=== PATIENT | female | born 1960 | race Caucasian/White ===

== ENCOUNTER 2017-03-11 14:02 | Inpatient (IN) | payer OTHER ==
[2017-03-11] MEDS ORDERED: IV VANCOMYCIN PER PHARMACY 1 EACH MISC MISCELLANE PRN (14:15)
[2017-03-11] MEDS ORDERED: MORPHINE SULFATE 4 MG/ML SYRINGE IVP STA (14:15)
[2017-03-11] MEDS ORDERED: MORPHINE SULFATE 4 MG/ML SYRINGE IVP PRN (14:15)
[2017-03-11] MEDS ORDERED: ONDANSETRON 4 MG/2 ML VIAL IVP PRN (14:18)
[2017-03-11] MEDS ORDERED: NALOXONE 0.4 MG/ML 1 ML VIAL IV PRN (14:18)
[2017-03-11] MEDS ORDERED: VANCOMYCIN 1,500 MG in SODIUM CHLORIDE 0.9% 250 ML IVPB STA (14:20)
--- NOTE | 2017-03-11 14:40 | ED ---
General Adult HPI - General Chief complaint: Skin/Abscess/Foreign Body Stated complaint: Facial Cellulitis Time Seen by Provider: 03/11/17 14:06 Source: patient, EMS, RN notes reviewed, old records reviewed Mode of arrival: EMS Limitations: no limitations - History of Present Illness Initial comments: 56-year-old female transferred from [facility] for facial cellulitis. Patient complains of a three-day history of worsening pain and swelling of the right side of her face. She was gardening and had a bug bite on her right cheek. Yesterday night she developed a fever of 101. Pain is 8 out of 10. She does report worsening pain with movement. She has no history of MRSA infection. No history of diabetes no history recent steroid use. Patient's past medical history of seizure disorder, hypertension, and is a daily tobacco user. Denies nausea vomiting diarrhea. No chest pain or shortness of breath. Denies IV drug abuse. - Related Data Allergies Allergy/AdvReac Type Severity Reaction Status Date / Time hydromorphone [From Dilaudid] AdvReac Unknown Verified 03/11/17 14:19 Review of Systems ROS Statement: Those systems with pertinent positive or pertinent negative responses have been documented in the HPI. ROS Other: All systems not noted in ROS Statement are negative. Constitutional: Reports: fever, chills Past Medical History Past Medical History: Fibromyalgia, Hypertension, Seizure Disorder Additional Past Medical History / Comment(s): colitis History of Any Multi-Drug Resistant Organisms: None Reported Past Surgical History: Breast Surgery, Hysterectomy, Orthopedic Surgery, Tubal Ligation Past Psychological History: No Psychological Hx Reported Smoking Status: Current every day smoker Past Alcohol Use History: None Reported Past Drug Use History: Marijuana General Exam Limitations: no limitations General appearance: alert, in no apparent distress Head exam: Present: atraumatic, normocephalic Eye exam: Present: normal appearance, PERRL, periorbital swelling (Some soft tissue swelling below the right eye.) ENT exam: Present: normal exam, mucous membranes moist, other (Normal dentition , significant swelling, erythema, and tenderness to palpation of the right face extending from just below the right eye to the mid neck. There is no fluctuance. There is some induration.) Neck exam: Present: lymphadenopathy Respiratory exam: Present: normal lung sounds bilaterally. Absent: respiratory distress Cardiovascular Exam: Present: regular rate, normal rhythm GI/Abdominal exam: Present: soft. Absent: distended, tenderness, guarding Extremities exam: Present: full ROM, normal capillary refill. Absent: pedal edema Neurological exam: Present: alert, oriented X3 Psychiatric exam: Present: normal affect, normal mood Skin exam: Present: warm, dry Course Vital Signs 03/11/17 14:14 Temperature 98.5 F Pulse Rate 60 Respiratory 18 Rate Blood Pressure 130/70 O2 Sat by Pulse 95 Oximetry Medical Decision Making - Medical Decision Making 56-year-old female presenting as a transfer patient with right-sided facial cellulitis. Patient received the computed tomography scan from outside facility which was read as cellulitis, no subcutaneous air, no focal fluid collection suggestive of an abscess. Patient was given Rocephin prior to transfer. There is no written note of whether blood cultures were sent prior to IV antibiotic menstruation. Blood cultures are sent at this institution and patient is started on vancomycin. Given the history of bug bite prior to swelling and exam is likely this is caused from a gram-positive organism. White blood cell count from transferring facility was 24,000, lactic acid was 1. Repeat laboratory studies were sent and are pending. Patient is given IV hydration, IV pain medication, repeat blood cultures are drawn and vancomycin will be administered in the emergency department. Patient will be admitted to internal medicine with infectious disease on consult. Diagnosis: Facial cellulitis Disposition Clinical Impression: Cellulitis Disposition: ADMITTED IP TO THIS HOSP Condition: Stable Referrals: Ishaan Osorio MD [Primary Care Provider] - 1-2 days Decision to Admit Reason: Admit from EC Decision Date: 03/11/17 Decision Time: 14:30
[2017-03-11] MEDS: SODIUM CHLORIDE 0.9% 1,000 ML IV SCH (14:44)
[2017-03-11 15:01] LABS: Anion Gap 11 mmol/L; Blood Urea Nitrogen 13 mg/dL (7-17); Calcium 9.7 mg/dL (8.4-10.2); Carbon Dioxide 22 mmol/L (22-30); Chloride 106 mmol/L (98-107); Glucose 90 mg/dL (74-99); Non-African American GFR(MDRD) >60 (>60 ml/min/1.73 sqM); Potassium 4.3 mmol/L (3.5-5.1); Sodium 139 mmol/L (137-145)
[2017-03-11 15:08] LABS: Basophils # (A) 0.1 k/uL (0-0.2); Basophils % (A) 1 %; CH 31.1; CHCM 35.1; Eosinophils # (A) 0.3 k/uL (0-0.7); Eosinophils % (A) 1 %; HCT 43.7 % (34.0-46.0); HDW 2.34; HGB 15.6 gm/dL (11.4-16.0); Luc # (Auto) 0.28; Luc % (Auto) 1; Lymphocytes # (A) 3.3 k/uL (1.0-4.8); Lymphocytes % (A) 15 %; MCH 31.9 pg (25.0-35.0); MCHC 35.8 g/dL (31.0-37.0); Mean Platelet Volume 7.1; Monocytes # (A) 1.2 k/uL (0-1.0); Monocytes % (A) 6 %; Neutrophils # (A) 16.1 k/uL (1.3-7.7); Neutrophils % (A) 76 %; RBC 4.91 m/uL (3.80-5.40); RDW 13.2 % (11.5-15.5); WBC 21.3 k/uL (3.8-10.6); WBC (Perox) 20.87
[2017-03-11] MEDS ORDERED: ALBUTEROL NEBULIZED 2.5 MG/3 ML INHALATION PRN (16:06)
--- NOTE | 2017-03-11 16:16 | P.HPIM ---
History of Present Illness 56-year-old female transferred from [facility] for facial cellulitis. Patient complains of a three-day history of worsening pain and swelling of the right side of her face. She was gardening and had a bug bite on her right cheek. Yesterday night she developed a fever of 101. Pain is 8 out of 10. She does report worsening pain with movement. She has no history of MRSA infection. No history of diabetes no history recent steroid use. Patient's past medical history of seizure disorder, hypertension, and is a daily tobacco user. Denies nausea vomiting diarrhea. No chest pain or shortness of breath. Denies IV drug abuse. Patient appears to have an abscess in that area. Review of Systems REVIEW OF SYSTEMS: CONSTITUTIONAL: No fever, no malaise, no fatigue. HEENT: No recent visual problems or hearing problems. Denied any sore throat. Since left cheek is swollen with local is of temperature tenderness and patient has a nidus of infection from previous bite. Patient appears to have an abscess. CARDIOVASCULAR: No chest pain, orthopnea, PND, no palpitations, no syncope. PULMONARY: No shortness of breath, no cough, no hemoptysis. GASTROINTESTINAL: No diarrhea, no nausea, no vomiting, no abdominal pain. Normoactive bowel sounds. NEUROLOGICAL: No headaches, no weakness, no numbness. HEMATOLOGICAL: Denies any bleeding or petechiae. GENITOURINARY: Denies any burning micturition, frequency, or urgency. MUSCULOSKELETAL/RHEUMATOLOGICAL: Denies any joint pain, swelling, or any muscle pain. ENDOCRINE: Denies any polyuria or polydipsia. The rest of the 14-point review of systems is negative. Past Medical History Past Medical History: Fibromyalgia, Hypertension, Seizure Disorder Additional Past Medical History / Comment(s): colitis History of Any Multi-Drug Resistant Organisms: None Reported Past Surgical History: Breast Surgery, Hysterectomy, Orthopedic Surgery, Tubal Ligation Past Psychological History: No Psychological Hx Reported Smoking Status: Current every day smoker Past Alcohol Use History: None Reported Past Drug Use History: Marijuana Medications and Allergies Home Medications Medication Instructions Recorded Confirmed Type Albuterol Nebulized [Ventolin 2.5 mg INHALATION RT-TID 03/11/17 03/11/17 History Nebulized] Albuterol Sulfate [Ventolin HFA] 2 puff INHALATION RT-QID PRN 03/11/17 03/11/17 History Budesonide-Formot 160-4.5 Mcg 2 puff INHALATION RT-BID 03/11/17 03/11/17 History [Symbicort 160-4.5 Mcg Inhaler] Celecoxib [CeleBREX] 200 mg PO BID 03/11/17 03/11/17 History Fenofibrate,Micronized 130 mg PO DAILY 03/11/17 03/11/17 History [Fenofibrate] Hydrocodone/Acetaminophen [[place] 1 tab PO Q6H PRN 03/11/17 03/11/17 History 10-325] Ketorolac Tromethamine [Ketorolac 10 mg PO Q7D 03/11/17 03/11/17 History Tromethamine] Lisinopril-Hctz 20-25 mg 1 tab PO DAILY 03/11/17 03/11/17 History [Zestoretic 20-25] Methocarbamol [Robaxin] 1,000 mg PO QID 03/11/17 03/11/17 History Omeprazole [Omeprazole] 20 mg PO DAILY 03/11/17 03/11/17 History Ranitidine HCl [Ranitidine HCl] 150 mg PO BID 03/11/17 03/11/17 History Simvastatin [Simvastatin] 40 mg PO HS 03/11/17 03/11/17 History Allergies Allergy/AdvReac Type Severity Reaction Status Date / Time hydromorphone [From Dilaudid] AdvReac PANIC Verified 03/11/17 14:39 ATTACKS Physical Exam Vitals: Vital Signs Temp Pulse Pulse Resp BP BP Pulse Ox 03/11/17 15:46 98.8 F 54 L 16 116/62 92 L 03/11/17 14:56 99.4 F 53 L 18 132/59 95 03/11/17 14:14 98.5 F 60 18 130/70 95 Intake and Output 03/11/17 03/11/17 03/11/17 06:59 14:59 22:59 Other: Weight 68.039 kg Patient Weight 03/12/17 06:59 Weight 68.039 kg Results CBC & Chem 7: 03/11/17 14:34 03/11/17 14:34 Labs: Abnormal Lab Results - Last 24 Hours (Table) 03/11/17 Range/Units 14:34 WBC 21.3 H (3.8-10.6) k/uL Neutrophils # 16.1 H (1.3-7.7) k/uL Monocytes # 1.2 H (0-1.0) k/uL Assessment and Plan Plan: 1 sepsis: Secondary to left cheek abscess. Surgery or ENT will be canceled it. Patient will be continued on vancomycin. Patient's IV fluids will be continued at 100 mL/h. Will use Toradol for pain. #2 fibromyalgia 3 hypertension hold off on antidepressant medications because of concerns of hypotension secondary to sepsis. #4 seizure disorder #5 nicotine abuse counseling was provided. #6 COPD without any acute exacerbation. She'll be continued on inhalational steroids and albuterol ipratropium. For above-mentioned chronic medical problems including continue her home medications.
--- NOTE | 2017-03-11 17:34 | XR ---
EXAMINATION TYPE: XR panorex DATE OF EXAM: 03/11/2017 COMPARISON: NONE HISTORY: Facial abscess from bug bite right cheek TECHNIQUE: Panorex radiography - 1 view FINDINGS: The bones and joints and soft tissues have normal appearance. IMPRESSION: Negative examination.
[2017-03-11] MEDS: KETOROLAC 30 MG/ML 1 ML VIAL IVP SCH ×2 (18:15→23:59)
[2017-03-11] MEDS: METHOCARBAMOL 500 MG TAB PO SCH ×2 (18:16→21:14)
[2017-03-11] MEDS: ALBUTEROL NEBULIZED 2.5 MG/3 ML INHALATION SCH (20:26)
[2017-03-11] MEDS: SYMBICORT 160-4.5 MCG INHALER INHALATION SCH (20:26)
[2017-03-11] MEDS ORDERED: CELECOXIB 200 MG PO SCH (21:00)
[2017-03-11] MEDS: PHENYTOIN SODIUM EXTENDED 100 MG CAP PO SCH (21:14)
[2017-03-11] MEDS: ATORVASTATIN 20 MG TAB PO SCH (21:14)
[2017-03-11] MEDS: VANCOMYCIN 1,500 MG in SODIUM CHLORIDE 0.9% 250 ML IVPB SCH (23:59)
[2017-03-12] MEDS: FLUoxetine HCL 20 MG CAP PO SCH ×2 (01:11→08:19)
[2017-03-12] MEDS: HYDROcodone/APAP 10-325MG 1 EACH TAB PO PRN ×3 (04:15→20:06)
[2017-03-12] MEDS: KETOROLAC 30 MG/ML 1 ML VIAL IVP SCH ×4 (05:52→23:46)
[2017-03-12] MEDS: ALBUTEROL NEBULIZED 2.5 MG/3 ML INHALATION SCH ×3 (07:21→19:39)
[2017-03-12] MEDS: SYMBICORT 160-4.5 MCG INHALER INHALATION SCH ×2 (07:23→19:39)
[2017-03-12 07:35] LABS: Basophils # (A) 0.1 k/uL (0-0.2); Basophils % (A) 0 %; CH 31.1; CHCM 34.1; Eosinophils # (A) 0.4 k/uL (0-0.7); Eosinophils % (A) 3 %; HCT 37.7 % (34.0-46.0); HDW 2.37; HGB 13.4 gm/dL (11.4-16.0); Luc # (Auto) 0.24; Luc % (Auto) 2; Lymphocytes # (A) 2.7 k/uL (1.0-4.8); Lymphocytes % (A) 18 %; MCH 32.6 pg (25.0-35.0); MCHC 35.6 g/dL (31.0-37.0); MCV 91.6 fL (80.0-100.0); Mean Platelet Volume 7.1; Monocytes # (A) 0.8 k/uL (0-1.0); Monocytes % (A) 5 %; Neutrophils # (A) 10.8 k/uL (1.3-7.7); Neutrophils % (A) 72 %; RBC 4.12 m/uL (3.80-5.40); RDW 13.2 % (11.5-15.5); WBC (Perox) 14.11
[2017-03-12 07:57] LABS: Anion Gap 7 mmol/L; Blood Urea Nitrogen 15 mg/dL (7-17); Calcium 8.7 mg/dL (8.4-10.2); Carbon Dioxide 23 mmol/L (22-30); Chloride 110 mmol/L (98-107); Glucose 89 mg/dL (74-99); Non-African American GFR(MDRD) >60 (>60 ml/min/1.73 sqM); Potassium 4.1 mmol/L (3.5-5.1); Sodium 140 mmol/L (137-145)
[2017-03-12] MEDS: METHOCARBAMOL 500 MG TAB PO SCH ×4 (08:18→22:37)
[2017-03-12] MEDS: FENOFIBRATE 160 MG TAB PO SCH (08:19)
[2017-03-12] MEDS: PHENYTOIN SODIUM EXTENDED 100 MG CAP PO SCH ×2 (08:19→22:37)
[2017-03-12] MEDS: PANTOPRAZOLE 40 MG TABLET PO SCH (08:19)
[2017-03-12] MEDS: SODIUM CHLORIDE 0.9% 1,000 ML IV SCH ×3 (08:20→20:06)
[2017-03-12] MEDS: VANCOMYCIN 1,500 MG in SODIUM CHLORIDE 0.9% 250 ML IVPB SCH ×2 (13:20→23:46)
--- NOTE | 2017-03-12 17:20 | P.PN ---
Subjective Date of service 03/12/2017. Progress note dictated for Dr. Schmitt Interval history: This is a 56-year-old female admitted with sepsis secondary to right cheek abscess, and multiple other medical issues. Panorex reporting normal appearance of bones joints and soft tissues. Evaluated by infectious disease, culture obtained. Maintained on vancomycin. Denies difficulties swallowing, shortness of breath, chest pain, or palpitations. Denies focal deficits, dizziness or lightheadedness. Afebrile. Objective - Vital Signs Vital signs: Vital Signs Temp 98.4 F 03/12/17 15:00 Pulse 56 L 03/12/17 15:00 Resp 16 03/12/17 15:00 BP 119/56 03/12/17 15:00 Pulse Ox 96 03/12/17 15:00 Intake & Output 03/11/17 03/12/17 03/12/17 18:59 06:59 18:59 Intake Total 630 250 Balance 630 250 Weight 68.039 kg Intake: Intake, IV Titration 400 250 Amount Sodium Chloride 0.9% 1, 400 000 ml @ 100 mls/hr IV . Q10H [facility] Rx#:[id number] Vancomycin 1,500 mg In 250 Sodium Chloride 0.9% 250 ml @ 125 mls/hr IVPB Q12H [facility] Rx#:[id number] Oral 230 Other: Voiding Method Toilet Toilet # Voids 2 - Exam PHYSICAL EXAM: VITAL SIGNS: As above GENERAL: [Sitting up in bed, no acute distress] HEENT: [Pupils equal conjunctiva normal. Periorbital swelling of right eye. Trachea midline. Oral mucosa moist] NECK: [Supple, no JVD] RESPIRATORY EFFORT:[ Normal] LUNGS: [Clear, bilateral bases diminished] CARDIOVASCULAR[] GI: [Abdomen soft, nontender, positive bowel sounds.] PSYCH: [Alert and oriented -3, mood and affect normal.] SKIN: [Periorbital swelling of right eye, extending down through the right cheek -with significant erythema,tenderness, to right lateral neck. ] NEURO: No focal deficits Microbiology 03/11/17 14:34 Blood Blood Culture - Preliminary No Growth after 24 hours - Labs CBC & Chem 7: 03/12/17 07:05 03/12/17 07:05 Labs: Abnormal Lab Results - Last 24 Hours (Table) 03/12/17 03/12/17 Range/Units 07:05 07:05 WBC 15.0 H (3.8-10.6) k/uL Neutrophils # 10.8 H (1.3-7.7) k/uL Chloride 110 H (98-107) mmol/L Microbiology - Last 24 Hours (Table) 03/11/17 14:34 Blood Culture - Preliminary Blood No Growth after 24 hours Assessment and Plan Plan: 1. sepsis: Secondary to right cheek abscess. #2 fibromyalgia 3 hypertension hold off on antidepressant medications because of concerns of hypotension secondary to sepsis. #4 seizure disorder #5 nicotine abuse #6 COPD without any acute exacerbation. Plan: Continue on current medication regime ,monitoring and symptomatic treatment. Maintain IV fluid hydration. Pain management with Toradol. Antibiotics as per infectious disease, monitor cultures closely. Smoking cessation readdressed. Oral surgery consult in place with recommendations pending. The impression and plan of care has been dictated as directed. : I performed a H&P examination of this patient and discussed the same with the dictator. I agree with the dictator's note. Any additional findings/opinions/ etc. will be noted.
--- NOTE | 2017-03-12 17:53 | CONS ---
DATE OF CONSULTATION: 03/12/2017 REASON FOR CONSULTATION: [id number]old female initially presented to [facility] for right facial swelling and redness. Her symptoms had been going on for about 3 days prior to presentation to hospital. The patient says it started like a boil and the area has gradually increased in size, becoming more painful. The patient describes it to be throbbing, almost 7 to 8 out of 10, and no radiation. The patient did have a fever of 101 degrees Fahrenheit. With the symptoms, the patient was evaluated at that facility and subsequently was transferred to [facility] for further evaluation. The patient did have a CT of the maxillofacial area at that facility which did show evidence of cellulitis, possibly subcutaneous air; no focal fluid collection suggestive of an abscess. The patient received a dose of Rocephin there. She did have an elevated white count of 24,000. Lactic acid was 1. The patient was subsequently admitted to our facility and has been treated with IV vancomycin. This morning the area opened up by itself and started to drain some purulent material. The patient's right facial swelling and redness is slightly improved. She denies significant chest pain, shortness of breath or cough. No abdominal pain or any diarrhea. No fever has been recorded at our facility. The white count was elevated at 21.3 and is down to 15 today. REVIEW OF SYSTEMS: CONSTITUTIONAL: Positive for weakness along with a fever. EYES: No complaint. ENT: As per HPI. RESPIRATORY: No complaint. CARDIOVASCULAR: No complaint. GENITOURINARY: No complaint. GASTROINTESTINAL: No complaint. MUSCULOSKELETAL: No complaint. INTEGUMENTARY: As per HPI. PSYCHOLOGIC: No complaint. ENDOCRINE: No complaint. NEUROLOGIC: No complaint. Past medical history is significant for: 1. Seizure disorder. 2. Hypertension. 3. Fibromyalgia. 4. Colitis. PAST SURGICAL HISTORY: 1. Breast surgery. 2. Hysterectomy. 3. Tubal ligation. 4. Orthopedic surgery. SOCIAL HISTORY: Current everyday smoker; smokes about a pack a day. Does admit to marijuana use. No drinking, though. FAMILY HISTORY: No pertinent findings were noticed. ALLERGIES: HYDROMORPHONE. Medications include: 1. [place]. 2. Ventolin. 3. Lipitor. 4. Symbicort. 5. Lofibra. 6. Prozac. 7. Toradol. 8. Robaxin. 9. Vancomycin, Pharmacy to dose. 10. Narcan. 11. Zofran. 12. Protonix. 13. Dilantin. On examination, her blood pressure is 119/56 with a pulse of 56, temperature 98.4. She is 96% on room air. General description is a middle-aged female up in the room in no distress. No tachypnea or accessory muscle of respiration use. HEENT examination shows no pallor or scleral icterus. The patient does have slight paraorbital redness extending to the maxillary area on the right side with an area of induration with slight pressure. Very minimal pus came out followed by blood. Area was cleaned and cultured. NECK: Trachea is central. No thyromegaly. LUNGS: Unlabored breathing. Clear to auscultation anteriorly. No wheeze or crackle. HEART: S1, S2. Regular rate and rhythm. No added sound. ABDOMEN: Soft. No tenderness. No guarding. No rigidity. EXTREMITIES: No edema of the feet. SKIN EXAMINATION: No rash or mass palpable. Neurologically patient is awake, alert, oriented x3. Mood and affect normal. LABS: Hemoglobin is 13.4, white count of 15. Admission white count was 21.3 with a BUN of 15, creatinine 0.58. No culture drawn at this facility. Patient did have a Panorex x-ray, which was a negative examination. DIAGNOSTIC IMPRESSION AND PLAN: Patient with right facial cellulitis that started as a small boil and likely concern for Gram-positive skin kat, especially Staphylococcus aureus and a question of possible ( ) MRSA cannot be entirely excluded with spontaneous drainage of the abscess. PLAN: 1. Wound culture has been obtained to guide antibiotic therapy. 2. The patient will continue on vancomycin, Pharmacy to dose, with a target trough of 15. 3. Will follow up on her clinical condition as well as cultures to further adjust medication if needed. Thank you for this consultation. We will follow this patient along with you. PHANI
[2017-03-12] MEDS: ATORVASTATIN 20 MG TAB PO SCH (22:37)
[2017-03-13] MEDS: KETOROLAC 30 MG/ML 1 ML VIAL IVP SCH ×3 (05:27→16:21)
[2017-03-13] MEDS: SODIUM CHLORIDE 0.9% 1,000 ML IV SCH ×3 (05:28→20:12)
[2017-03-13 08:01] VITALS: RESP 16
[2017-03-13] MEDS: PHENYTOIN SODIUM EXTENDED 100 MG CAP PO SCH ×2 (08:03→20:11)
[2017-03-13] MEDS: METHOCARBAMOL 500 MG TAB PO SCH ×4 (08:03→21:42)
[2017-03-13] MEDS: HYDROcodone/APAP 10-325MG 1 EACH TAB PO PRN ×2 (08:04→16:21)
[2017-03-13] MEDS: FLUoxetine HCL 20 MG CAP PO SCH (08:04)
[2017-03-13] MEDS: PANTOPRAZOLE 40 MG TABLET PO SCH (08:05)
[2017-03-13] MEDS: FENOFIBRATE 160 MG TAB PO SCH (08:05)
[2017-03-13] MEDS: ALBUTEROL NEBULIZED 2.5 MG/3 ML INHALATION SCH ×3 (09:21→20:24)
[2017-03-13] MEDS: SYMBICORT 160-4.5 MCG INHALER INHALATION SCH ×2 (09:21→20:23)
[2017-03-13] MEDS: LISINOPRIL-HCTZ 20-25 MG 1 EACH TAB PO SCH (09:37)
--- NOTE | 2017-03-13 10:43 | P.PN ---
Subjective This is a 56-year-old female admitted with sepsis secondary to right cheek cellulitis, and multiple other medical issues. P. Evaluated by infectious disease, culture doing MRSA. Maintained on vancomycin. Denies difficulties swallowing, shortness of breath, chest pain, or palpitations. Denies focal deficits, dizziness or lightheadedness. Afebrile. Awaiting finalization of the cultures and sensitivity. Objective - Vital Signs Vital signs: Vital Signs Temp 98.1 F 03/13/17 07:00 Pulse 54 L 03/13/17 09:32 Resp 16 03/13/17 08:00 BP 193/83 03/13/17 07:00 Pulse Ox 96 03/13/17 07:00 Intake & Output 03/12/17 03/13/17 03/13/17 18:59 06:59 18:59 Intake Total 250 3362 Balance 250 3362 Intake: Intake, IV Titration 250 2952 Amount Sodium Chloride 0.9% 1, 2702 000 ml @ 100 mls/hr IV . Q10H [facility] Rx#:[id number] Vancomycin 1,500 mg In 250 250 Sodium Chloride 0.9% 250 ml @ 125 mls/hr IVPB Q12H [facility] Rx#:[id number] Oral 410 Other: Voiding Method Toilet Toilet Toilet # Voids 3 - Exam GENERAL: [Sitting up in bed, no acute distress] HEENT: [Pupils equal conjunctiva normal. Periorbital swelling of right eye. Trachea midline. Oral mucosa moist] NECK: [Supple, no JVD] RESPIRATORY EFFORT:[ Normal] LUNGS: [Clear, bilateral bases diminished] CARDIOVASCULAR[] GI: [Abdomen soft, nontender, positive bowel sounds.] PSYCH: [Alert and oriented -3, mood and affect normal.] SKIN: Overall redness improved compared to yesterday and induration improved as well, no active drainage of pus ] NEURO: No focal deficits - Labs CBC & Chem 7: 03/12/17 07:05 03/12/17 07:05 Labs: Microbiology - Last 24 Hours (Table) 03/12/17 13:00 Gram Stain - Preliminary Face Wound Culture - Preliminary Presumptive MRSA 03/11/17 14:34 Blood Culture - Preliminary Blood No Growth after 24 hours Assessment and Plan Plan: 1 sepsis: Secondary to left cheek cellulitis and there is a possibility of abscess. I's and #2 fibromyalgia 3 hypertension patient's blood pressure is very high today patient was resumed on her home regimen of antidepressant medications #4 seizure disorder #5 nicotine abuse counseling was provided. #6 COPD without any acute exacerbation. She'll be continued on inhalational steroids and albuterol ipratropium. For above-mentioned chronic medical problems including continue her home medications.
[2017-03-13] MEDS ORDERED: VANCOMYCIN TROUGH DUE 1 EACH MISC MISCELLANE ONE (11:00)
[2017-03-13 11:24] LABS: Anion Gap 7 mmol/L; Blood Urea Nitrogen 14 mg/dL (7-17); Calcium 9.4 mg/dL (8.4-10.2); Carbon Dioxide 21 mmol/L (22-30); Chloride 116 mmol/L (98-107); Glucose 98 mg/dL (74-99); Non-African American GFR(MDRD) >60 (>60 ml/min/1.73 sqM); Potassium 4.3 mmol/L (3.5-5.1); Sodium 144 mmol/L (137-145)
[2017-03-13] MEDS: VANCOMYCIN 1,500 MG in SODIUM CHLORIDE 0.9% 250 ML IVPB SCH (11:40)
[2017-03-13] MEDS: ATORVASTATIN 20 MG TAB PO SCH (20:11)
[2017-03-14] MEDS: KETOROLAC 30 MG/ML 1 ML VIAL IVP SCH ×5 (00:18→23:36)
[2017-03-14] MEDS: VANCOMYCIN 1,500 MG in SODIUM CHLORIDE 0.9% 250 ML IVPB SCH ×3 (00:19→23:37)
[2017-03-14] MEDS: ALBUTEROL NEBULIZED 2.5 MG/3 ML INHALATION SCH ×3 (07:24→20:25)
[2017-03-14] MEDS: SYMBICORT 160-4.5 MCG INHALER INHALATION SCH ×2 (07:24→20:25)
[2017-03-14] MEDS: LISINOPRIL-HCTZ 20-25 MG 1 EACH TAB PO SCH (07:46)
[2017-03-14] MEDS: FENOFIBRATE 160 MG TAB PO SCH (07:46)
[2017-03-14] MEDS: FLUoxetine HCL 20 MG CAP PO SCH (07:46)
[2017-03-14] MEDS: METHOCARBAMOL 500 MG TAB PO SCH ×4 (07:46→21:18)
[2017-03-14] MEDS: SODIUM CHLORIDE 0.9% 1,000 ML IV SCH (07:46)
[2017-03-14] MEDS: PHENYTOIN SODIUM EXTENDED 100 MG CAP PO SCH ×2 (07:46→21:19)
[2017-03-14] MEDS: PANTOPRAZOLE 40 MG TABLET PO SCH (07:48)
[2017-03-14] MEDS: HYDROcodone/APAP 10-325MG 1 EACH TAB PO PRN ×2 (08:31→16:58)
[2017-03-14 09:41] LABS: CH 31.3; CHCM 33.3; HCT 39.2 % (34.0-46.0); HDW 2.38; HGB 12.9 gm/dL (11.4-16.0); MCH 31.2 pg (25.0-35.0); MCV 94.6 fL (80.0-100.0); RBC 4.14 m/uL (3.80-5.40); RDW 13.3 % (11.5-15.5); WBC 9.1 k/uL (3.8-10.6)
[2017-03-14 09:52] LABS: Anion Gap 5 mmol/L; Blood Urea Nitrogen 10 mg/dL (7-17); Calcium 9.2 mg/dL (8.4-10.2); Carbon Dioxide 26 mmol/L (22-30); Chloride 113 mmol/L (98-107); Glucose 96 mg/dL (74-99); Non-African American GFR(MDRD) >60 (>60 ml/min/1.73 sqM); Potassium 3.7 mmol/L (3.5-5.1); Sodium 144 mmol/L (137-145)
--- NOTE | 2017-03-14 15:19 | P.PN ---
Subjective This is a 56-year-old female admitted with sepsis secondary to right cheek cellulitis, and multiple other medical issues. P. Evaluated by infectious disease, culture doing MRSA. Maintained on vancomycin. Denies difficulties swallowing, shortness of breath, chest pain, or palpitations. Denies focal deficits, dizziness or lightheadedness. Afebrile. Awaiting finalization of the cultures and sensitivity. 03/14/17 cellulitis did improve and finalization of the wound cultures are still pending. Objective - Vital Signs Vital signs: Vital Signs Temp 98.6 F 03/14/17 07:00 Pulse 54 L 03/14/17 13:56 Resp 16 03/14/17 08:00 BP 131/86 03/14/17 07:00 Pulse Ox 96 03/14/17 07:00 Intake & Output 03/13/17 03/14/17 03/14/17 18:59 06:59 18:59 Intake Total 950 970 Balance 950 970 Weight 68.039 kg Intake: Intake, IV Titration 950 550 Amount Sodium Chloride 0.9% 1, 700 300 000 ml @ 100 mls/hr IV . Q10H [facility] Rx#:[id number] Vancomycin 1,500 mg In 250 250 Sodium Chloride 0.9% 250 ml @ 125 mls/hr IVPB Q12H [facility] Rx#:[id number] Oral 420 Other: Voiding Method Toilet Toilet Toilet # Voids 3 2 - Exam GENERAL: [Sitting up in bed, no acute distress] HEENT: [Pupils equal conjunctiva normal. Periorbital swelling of right eye. Trachea midline. Oral mucosa moist] NECK: [Supple, no JVD] RESPIRATORY EFFORT:[ Normal] LUNGS: [Clear, bilateral bases diminished] CARDIOVASCULAR[] GI: [Abdomen soft, nontender, positive bowel sounds.] PSYCH: [Alert and oriented -3, mood and affect normal.] SKIN: Overall redness improved compared to yesterday and induration improved as well, no active drainage of pus ] NEURO: No focal deficits - Labs CBC & Chem 7: 03/14/17 09:11 03/14/17 09:11 Labs: Abnormal Lab Results - Last 24 Hours (Table) 03/14/17 Range/Units 09:11 Chloride 113 H (98-107) mmol/L Microbiology - Last 24 Hours (Table) 03/12/17 13:00 Gram Stain - Final Face Wound Culture - Final Methicillin resist S. aureus 03/11/17 14:34 Blood Culture - Preliminary Blood No Growth after 48 hours Assessment and Plan Plan: 1 sepsis: Secondary to left cheek cellulitis and there is a possibility of abscess. I's and #2 fibromyalgia 3 hypertension patient's blood pressure is very high today patient was resumed on her home regimen of antidepressant medications #4 seizure disorder #5 nicotine abuse counseling was provided. #6 COPD without any acute exacerbation. She'll be continued on inhalational steroids and albuterol ipratropium. For above-mentioned chronic medical problems including continue her home medications.
[2017-03-14] MEDS: ATORVASTATIN 20 MG TAB PO SCH (21:19)
[2017-03-15] MEDS: KETOROLAC 30 MG/ML 1 ML VIAL IVP SCH ×2 (05:50→13:15)
[2017-03-15] MEDS: SODIUM CHLORIDE 0.9% 1,000 ML IV SCH ×2 (05:53→12:02)
[2017-03-15] MEDS: SYMBICORT 160-4.5 MCG INHALER INHALATION SCH (06:45)
[2017-03-15] MEDS: ALBUTEROL NEBULIZED 2.5 MG/3 ML INHALATION SCH ×2 (06:45→13:57)
[2017-03-15] MEDS: HYDROcodone/APAP 10-325MG 1 EACH TAB PO PRN (07:30)
[2017-03-15 07:43] LABS: Anion Gap 7 mmol/L; Blood Urea Nitrogen 13 mg/dL (7-17); Carbon Dioxide 22 mmol/L (22-30); Chloride 115 mmol/L (98-107); Glucose 88 mg/dL (74-99); Non-African American GFR(MDRD) >60 (>60 ml/min/1.73 sqM); Potassium 3.9 mmol/L (3.5-5.1); Sodium 144 mmol/L (137-145)
[2017-03-15 07:58] VITALS: BP 176/81; TEMP 98.4
[2017-03-15] MEDS: FENOFIBRATE 160 MG TAB PO SCH (08:38)
[2017-03-15] MEDS: PHENYTOIN SODIUM EXTENDED 100 MG CAP PO SCH (08:38)
[2017-03-15] MEDS: PANTOPRAZOLE 40 MG TABLET PO SCH (08:38)
[2017-03-15] MEDS: LISINOPRIL-HCTZ 20-25 MG 1 EACH TAB PO SCH (08:38)
[2017-03-15] MEDS: FLUoxetine HCL 20 MG CAP PO SCH (08:38)
[2017-03-15] MEDS: METHOCARBAMOL 500 MG TAB PO SCH ×2 (08:38→13:16)
--- NOTE | 2017-03-15 09:01 | PN ---
DATE OF SERVICE: 03/14/2017 Reason for followup is right facial cellulitis and abscess secondary to MRSA. INTERVAL HISTORY: The patient is afebrile. The right facial swelling and redness is slightly improved. No further drainage. Denies significant chest pain, shortness of breath or cough. No abdominal pain or diarrhea. On examination, blood pressure is 160/72 with the pulse of 60, temperature 98.9. She is 93% on room air. General description is a middle age female up in the bed in no distress. HEENT EXAMINATION: The right facial swelling improved except for area of induration, no drainage. LUNGS: Unlabored breathing. Clear to auscultation anteriorly. HEART: S1 and S2, regular rate and rhythm. ABDOMEN: Soft, no tenderness. LABS: Hemoglobin is 12.9, white count 9.1 with a BUN of 10, creatinine 0.58. Wound culture with MRSA. Blood culture has been negative. DIAGNOSTIC IMPRESSION AND PLAN: Patient with right facial cellulitis and an abscess secondary to MRSA, status post spontaneous drainage and the patient continued to improve. Plan to finish therapy with oral Bactrim DS 1 twice a day for about 2 weeks. The patient needs a BMP done within a week to make sure no evidence of any ( ) as the patient is also on hydrochlorothiazide. She has been started to increase her fluid intake. Continue supportive care. MTDD
--- NOTE | 2017-03-15 12:33 | PN ---
DATE OF SERVICE: 03/15/17 REASON FOR FOLLOW UP: Right cheek MRSA abscess and cellulitis. INTERVAL HISTORY: The patient is afebrile. She is breathing comfortably. Pain and swelling to the right facial area has improved. No drainage. Denies significant chest pain or shortness of breath. No cough. No abdominal pain or any diarrhea. On examination, blood pressure is 176/81 with a pulse of 88. Temperature 98.4. She is 95% on ( ). General description is a middle age female up in bed in no distress. HEENT: Examination, the right facial swelling has improved. No drainage. LUNGS: Unlabored breathing. Clear to auscultation anteriorly. HEART: S1, S2 regular rate and rhythm. ABDOMEN: Soft, no tenderness. LABS: BUN 13, creatinine 0.58. DIAGNOSTIC IMPRESSION AND PLAN: Patient with right facial abscess and cellulitis status post ( ) drainage, culture with MRSA. The patient overall improvement on Vanco. She will be switched over to Bactrim DS one twice a day for another two weeks with BUN and creatinine to be checked in a week. This was discussed with the attending physician. Continue supportive care. MTDD
[2017-03-15] MEDS: VANCOMYCIN 1,500 MG in SODIUM CHLORIDE 0.9% 250 ML IVPB SCH (13:16)
[2017-03-15 14:01] VITALS: PULSE 60
--- NOTE | 2017-03-15 16:52 | P.DS ---
Providers Date of admission: 03/11/17 14:24 Expected date of discharge: 03/15/17 Attending physician: MD Dr. Oskar Fontana Consults: 03/11/17 14:21 Consult Physician Urgent Consulting Provider: Shabnam Blackwell Consult Reason/Comments: Facial cellulitis Do you want consulting provider notified?: Already Contacted Primary care physician: [facility] Hospital Course: Final Diagnoses: #1 sepsis: Secondary to left cheek cellulitis , facial abscess, culture with MRSA. #2 fibromyalgia 3 hypertension #4 seizure disorder #5 nicotine abuse counseling was provided. #6 COPD without any acute exacerbation. Hospital course:This is a 56-year-old female admitted with sepsis secondary to right cheek cellulitis, facial cellulitis, status post I&D, culture with MRSA and multiple other medical issues. Maintained on IV vancomycin.Evaluated by infectious disease. Significant clinical improvement. Cleared for discharge by infectious disease with discharge recommendations noted. Patient is being discharged home in a stable condition with guarded prognosis. The impression and plan of care has been dictated as directed as a scribe. : I performed a H&P examination of this patient and discussed the same with the dictator. I agree with the dictator's note. Any additional findings/opinions/ etc. will be noted. Patient Condition at Discharge: Stable Plan - Discharge Summary New Discharge Prescriptions: New Sulfamethox-Tmp 800-160Mg [Bactrim DS 800-160 mg] 1 tab PO Q12HR #28 tab Continue Albuterol Nebulized [Ventolin Nebulized] 2.5 mg INHALATION RT-TID Budesonide-Formot 160-4.5 Mcg [Symbicort 160-4.5 Mcg Inhaler] 2 puff INHALATION RT-BID Albuterol Sulfate [Ventolin HFA] 2 puff INHALATION RT-QID PRN PRN Reason: Shortness Of Breath Methocarbamol [Robaxin] 1,000 mg PO QID Ketorolac Tromethamine 10 mg PO Q7D Hydrocodone/Acetaminophen [[place] 10-325] 1 tab PO Q6H PRN PRN Reason: Pain Fenofibrate,Micronized [Fenofibrate] 130 mg PO DAILY Simvastatin 40 mg PO HS Ranitidine HCl 150 mg PO BID Omeprazole 20 mg PO DAILY Lisinopril-Hctz 20-25 mg [Zestoretic 20-25] 1 tab PO DAILY Phenytoin Sodium Extended [Dilantin] 300 mg PO BID Phenytoin Sodium Extended [Dilantin] 300 mg PO BID Discontinued Celecoxib [CeleBREX] 200 mg PO BID Discharge Medication List Albuterol Nebulized [Ventolin Nebulized] 2.5 mg INHALATION RT-TID 03/11/17 [ History] Albuterol Sulfate [Ventolin HFA] 2 puff INHALATION RT-QID PRN 03/11/17 [History] Budesonide-Formot 160-4.5 Mcg [Symbicort 160-4.5 Mcg Inhaler] 2 puff INHALATION RT-BID 03/11/17 [History] Fenofibrate,Micronized [Fenofibrate] 130 mg PO DAILY 03/11/17 [History] Hydrocodone/Acetaminophen [[place] 10-325] 1 tab PO Q6H PRN 03/11/17 [History] Ketorolac Tromethamine 10 mg PO Q7D 03/11/17 [History] Lisinopril-Hctz 20-25 mg [Zestoretic 20-25] 1 tab PO DAILY 03/11/17 [History] Methocarbamol [Robaxin] 1,000 mg PO QID 03/11/17 [History] Omeprazole 20 mg PO DAILY 03/11/17 [History] Phenytoin Sodium Extended [Dilantin] 300 mg PO BID 03/11/17 [History] Phenytoin Sodium Extended [Dilantin] 300 mg PO BID 03/11/17 [History] Ranitidine HCl 150 mg PO BID 03/11/17 [History] Simvastatin 40 mg PO HS 03/11/17 [History] Sulfamethox-Tmp 800-160Mg [Bactrim DS 800-160 mg] 1 tab PO Q12HR #28 tab [Rx] Follow up Appointment(s)/Referral(s): Ishaan Osorio MD [Primary Care Provider] - 03/17/17 11:30 am (patient sees carole leon at other office) Shabnam Blackwell MD [STAFF PHYSICIAN] - 03/25/17 10:15 am Ambulatory/Diagnostic Orders: Basic Metabolic Panel [LAB.AMB] Time Frame: 03/19/17, Location: Determined By Patient Patient Instructions/Handouts: Sulfamethoxazole/Trimethoprim (By mouth), MRSA ( Methicillin Resistant Staphylococcus Aureus) (DC), Cellulitis (DC) Activity/Diet/Wound Care/Special Instructions: No smoking Discharge Disposition: HOME SELF-CARE
== END 2017-03-15 14:20 | disposition home or self-care (01) | DRG 872 ==
LOC: EC 14:02 → 5MS5E 14:24
PROVIDERS: ADMIT Internal Medicine; ATTEND Internal Medicine
DX: A41.02 Sepsis due to Methicillin resistant Staphylococcus aureus (principal); I10 Essential (primary) hypertension; L02.01 Cutaneous abscess of face; L03.211 Cellulitis of face; F17.210 Nicotine dependence, cigarettes, uncomplicated; F12.90 Cannabis use, unspecified, uncomplicated; G40.909 Epilepsy, unspecified, not intractable, without status epilepticus; J44.9 Chronic obstructive pulmonary disease, unspecified; M79.7 Fibromyalgia; W57.XXXA Bitten or stung by nonvenomous insect and other nonvenomous arthropods, initial encounter; Z79.51 Long term (current) use of inhaled steroids; Z79.899 Other long term (current) drug therapy
CPT/HCPCS: 70355; 80048; 80202; 83605; 85025; 85027; 87040; 87070; 87077; 87186; 87205; 94640; 96374; 96375; 99285

== ENCOUNTER → 2017-03-30 | Outpatient (CLI) | payer OTHER ==
[2017-03-30 15:36] LABS: CH 31.4; CHCM 33.6; HCT 46.5 % (34.0-46.0); HDW 2.36; HGB 15.4 gm/dL (11.4-16.0); MCH 31.1 pg (25.0-35.0); MCHC 33.2 g/dL (31.0-37.0); MCV 93.7 fL (80.0-100.0); Mean Platelet Volume 7.2; RBC 4.96 m/uL (3.80-5.40); WBC 9.5 k/uL (3.8-10.6)
[2017-03-30 15:49] LABS: Anion Gap 10 mmol/L; Blood Urea Nitrogen 17 mg/dL (7-17); Carbon Dioxide 27 mmol/L (22-30); Chloride 106 mmol/L (98-107); Glucose 90 mg/dL (74-99); Non-African American GFR(MDRD) 57 (>60 ml/min/1.73 sqM); Potassium 4.5 mmol/L (3.5-5.1); Sodium 143 mmol/L (137-145)
== END | disposition home or self-care (01) ==
LOC: LABWHC1 15:16
PROVIDERS: ATTEND Nurse Practitioner
DX: Z79.899 Other long term (current) drug therapy (principal)
CPT/HCPCS: 36415; 80048; 85027

== ENCOUNTER → 2018-05-19 | Outpatient (CLI) | payer OTHER ==
--- NOTE | 2018-05-19 17:05 | MR ---
EXAMINATION TYPE: MR cervical spine wo con DATE OF EXAM: 05/19/2018 COMPARISON: None HISTORY: Neck pain, headaches, BUE weakness x several years TECHNIQUE: Multiplanar, multisequence images of the cervical spine were acquired. C2-C3: No evidence for degenerative disc disease. No disc bulge/herniation or protrusion. No Canal stenosis. Foramina are patent bilaterally. C3-C4: Lateral extension of endplate disc complex encroaches somewhat on the neural foramen left grea ter than right, posterior extension of endplate disc complex causes mild anterior mass effect on the thecal sac, there is only mild spinal stenosis. C4-C5: Lateral extension of endplate disc complex encroaches towards the right neural foramen and cau ses anterolateral mass effect in the thecal sac C5-C6: , Only mild central canal stenosis. Posterior extension endplate disc complex causes anterior mass effect on the thecal sac, only mild central canal stenosis. Lateral extension endplate disc comp kennedy causes foraminal encroachment greater on the right than on the left. C6-C7: Bilateral foraminal encroachment is present due to lateral extension of endplate disc complex, posterior broad-based disc bulge, endplate disc complex causes anterior mass effect on the thecal sa c, only mild central canal stenosis. C7-T1: Posterior disc bulge may contact the anterior cervical cord in the left paracentral location. No significant foraminal encroachment. On mild central canal stenosis. Cervical segments are intact. There is normal alignment. Cervical spinal cord is of normal signal. Craniovertebral junction relationships are within normal limits. Cervical vertebral bodies show pre served height. There is multilevel spondylosis with endplate discogenic marrow signal change and asso ciated loss of disc height and signal at C3-4, C4-5, C5-6 and C6-7. Minimal anterolisthesis grade 1 C 3-4, C4-5, retrolisthesis grade 1 C5-6. Cystic focus noted incidentally in the right lobe of the thyr oid. IMPRESSION: Multilevel degenerative disc disease and foraminal encroachment, additional findings above
== END | disposition home or self-care (01) ==
LOC: RADMRIMAIN 15:10
PROVIDERS: ATTEND Neurological Surgery
DX: M50.11 Cervical disc disorder with radiculopathy, high cervical region (principal); M43.12 Spondylolisthesis, cervical region; M47.812 Spondylosis without myelopathy or radiculopathy, cervical region
CPT/HCPCS: 72141